=== PATIENT | female | born 2000 ===

== ENCOUNTER 2019-08-16 14:08 | Outpatient (CLI) | payer OTHER ==
--- NOTE | 2019-08-16 14:55 | ULT ---
LIMITED ULTRASOUND LEFT BREAST: HISTORY: Left breast tenderness. FINDINGS: Limited sonographic evaluation left breast was obtained from the 9 o'clock to 12 o'clock position in the region of the patient's breast discomfort. At the 10 o'clock position there is a circumscribed, h ypoechoic mass measuring 6 mm in maximal dimensions. This may represent a fibroadenoma. No additional mass or cystic lesion is seen in the upper inner left breast. IMPRESSION: BI-RADS category 3 - probably benign findings. Short interval follow-up left breast ultrasound in six months is recommended to document stability of the hypoechoic mass in the left breast. However, ultrasound guided biopsy could be performed for fur ther evaluation if warranted. The above findings were discussed with Suzi, the nurse in the physician's office, on 08/16/2019 a t 1441 hours. CODE CR POS: OFF
== END 2019-08-16 14:09 | disposition home or self-care (01) ==
LOC: BICULT 14:08
PROVIDERS: ATTEND Physician Assistant
DX: N64.4 Mastodynia (principal)